=== PATIENT | female | born 1960 | race Caucasian/White ===

== ENCOUNTER → 2016-11-08 | Outpatient (CLI) | payer BC ==
--- NOTE | 2016-11-09 08:40 | MM ---
Reason for exam: screening (asymptomatic). Last mammogram was performed 1 year ago. History: Patient is postmenopausal, has history of other cancer at age 40, and had first child at age 35. Took hormonal contraceptives for 20 years. Physical Findings: A clinical breast exam by your physician is recommended on an annual basis and results should be correlated with mammographic findings. MG Screening Mammo w CAD Bilateral CC and MLO view(s) were taken. Prior study comparison: November 24, 2015, left breast MG 3d work up w/cad LT. November 16, 2015, bilateral MG screening mammo w CAD. October 22, 2013, bilateral digital screening mammo w/CAD. There are scattered fibroglandular densities. There is no discrete abnormality. ASSESSMENT: Negative, BI-RAD 1 RECOMMENDATION: Routine screening mammogram of both breasts in 1 year.
== END | disposition home or self-care (01) ==
LOC: RADMAMWWP 11:03
PROVIDERS: ATTEND Obstetrics & Gynecology
DX: Z12.31 Encounter for screening mammogram for malignant neoplasm of breast (principal)

== ENCOUNTER → 2017-12-07 | Outpatient (CLI) | payer BC ==
--- NOTE | 2017-12-07 15:50 | BD ---
EXAMINATION TYPE: MG DEXA axial skeleton. DATE OF EXAM: 12/07/2017 COMPARISON: NONE CLINICAL HISTORY: Height: 5 FT 2 1/2 IN Weight: 174 FRAX RISK QUESTIONS: Alcohol (3 or more units per day): NO Family History (Parent hip fracture): NO Glucocorticoids (More than 3mos): NO (Ex: prednisone, prednisolone, methylprednisolone, dexamethasone, and hydrocortisone). History of Fracture in Adulthood: NO Secondary Osteoporosis: 1. Type 1 Diabetes: NO 2. Hyperthyroidism: NO 3. Menopause before 45: NOT SURE 4. Malnutrition: NO 5. Chronic liver disease: NO Rheumatoid Arthritis: NO Current Tobacco Use: NO RISK FACTORS HISTORY OF: Postmenopausal woman: PART HYST IN HER 40'S MEDICATIONS: Thyroid Medications: YES Which medication: LEVOTHYROXINE How Lon YEARS Additional Medications: LEVOTHYROXINE Additional History: EXAM MEASUREMENTS: Bone mineral densitometry was performed using the [employer] System. Bone mineral density as measured about the Lumbar spine is: ----- L1-L4(G/cm2): 1.027 T Score Values are as follows: ----- L2: -2.3 ----- L3: -0.5 ----- L4: -0.5 ----- L1-L4: -1.3 Bone mineral density has: DECREASED -4.4 % since study of: 2014 Bone mineral density about the R hip (g/cm2): 0.790 Bone mineral density about the L hip (g/cm2): 0.821 T Score values are as follows: -----R Neck: -1.8 -----L Neck: -1.6 -----R Total: -1.4 -----L Total: -1.1 Bone mineral density has: DECREASED -5.2 % since study of: 2014 IMPRESSION: Osteopenia bilateral femora and lumbar spine and as such there is increased fracture risk. NOTE: T-SCORE=SD OF THE YOUNG ADULT MEAN.
--- NOTE | 2017-12-10 12:08 | MM ---
Reason for exam: screening (asymptomatic). Last mammogram was performed 1 year and 1 month ago. History: Patient is postmenopausal, has history of other cancer at age 40, and had first child at age 35. Took hormonal contraceptives for 20 years. Physical Findings: A clinical breast exam by your physician is recommended on an annual basis and results should be correlated with mammographic findings. MG Screening Mammo w CAD Bilateral CC and MLO view(s) were taken. Prior study comparison: November 08, 2016, bilateral MG screening mammo w CAD. November 24, 2015, left breast MG 3d work up w/cad LT. There are scattered fibroglandular densities. There is no discrete abnormality. ASSESSMENT: Negative, BI-RAD 1 RECOMMENDATION: Routine screening mammogram of both breasts in 1 year.
== END | disposition home or self-care (01) ==
LOC: RADMAMWWP 09:25
PROVIDERS: ATTEND Obstetrics & Gynecology
DX: Z12.31 Encounter for screening mammogram for malignant neoplasm of breast (principal); M85.852 Other specified disorders of bone density and structure, left thigh; M85.851 Other specified disorders of bone density and structure, right thigh; M85.88 Other specified disorders of bone density and structure, other site; N95.1 Menopausal and female climacteric states
CPT/HCPCS: 77067; 77080

== ENCOUNTER 2018-01-23 20:44 | Emergency (ER) | payer BC ==
[2018-01-23 21:02] VITALS: BP 155/86; PULSE 100; RESP 18; TEMP 98.3
--- NOTE | 2018-01-23 21:21 | ED ---
Lower Extremity Injury HPI - General Chief Complaint: Extremity Injury, Lower Stated Complaint: knee pain Time Seen by Provider: 01/23/18 21:10 Source: patient, RN notes reviewed Mode of arrival: ambulatory Limitations: no limitations - History of Present Illness Initial Comments: This is a 57-year-old female who presents to the emergency department with chief complaint of right knee injury. Patient states that she jumped out from the back of her truck prior to arrival and her right knee gave out. She states that she heard a pop. She states that her right knee feels unstable. She states that she has been bearing weight and ambulating on it. Denies any other injuries or trauma. Denies fever, chills, chest pain, shortness of breath, abdominal pain, nausea or vomiting, constipation or diarrhea, dysuria or hematuria, numbness or tingling, headache or vision changes. - Related Data Home Medications Medication Instructions Recorded Confirmed Levothyroxine Sodium 100 mcg PO DAILY 01/23/18 01/23/18 Allergies Allergy/AdvReac Type Severity Reaction Status Date / Time No Known Allergies Allergy Verified 01/23/18 21:02 Review of Systems ROS Statement: Those systems with pertinent positive or pertinent negative responses have been documented in the HPI. ROS Other: All systems not noted in ROS Statement are negative. Past Medical History Past Medical History: Hypertension, Thyroid Disorder History of Any Multi-Drug Resistant Organisms: None Reported Past Surgical History: Section, Hysterectomy Past Psychological History: No Psychological Hx Reported Smoking Status: Never smoker Past Alcohol Use History: None Reported Past Drug Use History: None Reported General Exam - General Exam Comments Initial Comments: General: Awake and alert, well-developed; in no apparent distress. HEENT: Head atraumatic, normocephalic. Pupils are equal, round and reactive to light. Extraocular movements intact. Oropharynx moist without erythema or exudate. Neck: Supple. Normal ROM. Cardiovascular: Regular rate and rhythm. No murmurs, rubs or gallops. Chest symmetrical. Respiratory: Lungs clear to auscultation bilaterally. No wheezes, rales or rhonchi. Normal respiratory effort with no use of accessory muscles. Musculoskeletal: Normal range of motion of the right knee. No erythema, ecchymosis or soft tissue swelling. No tenderness on palpation. Sensation is intact. Pedal pulses are 2+ equal and palpable bilaterally. Skin: [place], warm and dry without rashes or lesions. Neurological: Alert and oriented x3. CN II-XII grossly intact. Speech is fluent and answers are appropriate. No focal neuro deficits. Psychiatric: Normal mood and affect. No overt signs of depression or anxiety noted. Limitations: no limitations Course Vital Signs 01/23/18 20:54 Temperature 98.3 F Pulse Rate 100 Respiratory 18 Rate Blood Pressure 155/86 O2 Sat by Pulse 96 Oximetry Medical Decision Making - Medical Decision Making This is a 57-year-old female who presents to the emergency department with chief complaint of right knee injury. Patient jumped from the tailgate of her truck and her right knee gave out. She felt a pop. No swelling, normal range of motion and no tenderness on palpation of the knee. Patient states that it feels unstable. X-ray was obtained and revealed no acute abnormalities. Patient given a knee immobilizer. She is neurovascularly intact. Recommended following up with her primary care provider and/or orthopedics if no improvement. Recommended rest, ice and elevation. Patient's vital signs are stable and she is in no acute distress. She'll be discharged home at this time. All questions answered. - Radiology Data Radiology results: report reviewed X-ray right knee impression: Normal three-view right knee. Follow-up exam can be performed 7-10 days from acute trauma for continued pain. As read by Dr. Jones Disposition Clinical Impression: Acute internal derangement of knee Disposition: HOME SELF-CARE Condition: Good Instructions: Knee Sprain (ED), Knee Immobilizer (ED) Additional Instructions: Please rest, ice, elevate and wear knee immobilizer while ambulating. Please follow up with primary care provider and/or orthopedics within 1-2 days. Please follow up with primary care provider within 1-2 days. Return to emergency department if symptoms should worsen or any concerns arise. Is patient prescribed a controlled substance at d/c from ED?: No Referrals: Angelito Marcus MD [Primary Care Provider] - 1-2 days Jeremy Diamond MD [STAFF PHYSICIAN] - 1-2 days Time of Disposition: 21:39
--- NOTE | 2018-01-23 21:31 | XR ---
EXAMINATION TYPE: XR knee complete RT DATE OF EXAM: 01/23/2018 COMPARISON: NONE HISTORY: Pain TECHNIQUE: Three-view right knee FINDINGS: No joint effusion is evident. No acute fractures or dislocations are evident. Joint spaces appear preserved. IMPRESSION: 1. Normal three-view right knee. 2. Follow-up exam can be performed 7-10 days from acute trauma for continued pain
== END 2018-01-23 21:59 | disposition home or self-care (01) ==
LOC: EC 20:44
DX: S89.91XA Unspecified injury of right lower leg, initial encounter (principal); E07.9 Disorder of thyroid, unspecified; Z79.899 Other long term (current) drug therapy; X58.XXXA Exposure to other specified factors, initial encounter; Y93.39 Activity, other involving climbing, rappelling and jumping off; Y92.89 Other specified places as the place of occurrence of the external cause
CPT/HCPCS: 73562; 99283; L1830

== ENCOUNTER → 2018-12-11 | Outpatient (CLI) | payer BC ==
--- NOTE | 2018-12-12 09:49 | MM ---
Reason for exam: screening (asymptomatic). Last mammogram was performed 1 year ago. History: Patient is postmenopausal, has history of other cancer at age 40, and had first child at age 35. Took hormonal contraceptives for 20 years. Physical Findings: A clinical breast exam by your physician is recommended on an annual basis and results should be correlated with mammographic findings. MG Screening Mammo w CAD Bilateral CC and MLO view(s) were taken. Prior study comparison: December 07, 2017, bilateral MG screening mammo w CAD. November 08, 2016, bilateral MG screening mammo w CAD. There are scattered fibroglandular densities. There is no discrete abnormality. ASSESSMENT: Negative, BI-RAD 1 RECOMMENDATION: Routine screening mammogram of both breasts in 1 year.
== END ==
LOC: RADMAMWWP 09:50
PROVIDERS: ATTEND Obstetrics & Gynecology
DX: Z12.31 Encounter for screening mammogram for malignant neoplasm of breast (principal)
CPT/HCPCS: 77067

== ENCOUNTER 2019-04-11 21:19 | Emergency (ER) | payer BC ==
[2019-04-11 21:30] VITALS: BP 182/96; PULSE 92; RESP 18
[2019-04-11] MEDS ORDERED: KETOROLAC 30 MG/ML 1 ML VIAL IVP ONE (22:00)
[2019-04-11] MEDS ORDERED: LIDOCAINE 5% PATCH TOPICAL STA (22:00)
--- NOTE | 2019-04-11 22:33 | XR ---
EXAM: XR Chest, 2 Views CLINICAL HISTORY: Pain TECHNIQUE: Frontal and lateral views of the chest. COMPARISON: No relevant prior studies available. FINDINGS: Lungs: Unremarkable. No consolidation. Pleural space: Unremarkable. No pneumothorax. Heart: Unremarkable. No cardiomegaly. Mediastinum: Unremarkable. Bones/joints: Unremarkable. IMPRESSION: Unremarkable chest x-rays
--- NOTE | 2019-04-11 23:33 | ED ---
Back Pain HPI - General Chief Complaint: Back Pain/Injury Stated Complaint: back/shoulder pain Time Seen by Provider: 04/11/19 21:44 Source: patient Limitations: no limitations - History of Present Illness Initial Comments: Asha is a pleasant 58-year-old female presents the emergency department today for evaluation of upper back pain. Patient reports that early this morning she was blow drying her hair when she felt pain in his upper back, she describes the pain as aching or feeling like a bruise. Patient reports that the pain has improved throughout the day however she discussed the pain with her sister and a friend who is a nurse and both advised her that she could be having a heart attack despite the improvement of pain throughout the day the patient in the ER for evaluation. Patient reports that initially the pain was quite uncomfortable when she was blow drying her hair however this evening the pain is miniscule, not significant enough to even take Motrin. Patient denies any chest pain palpitation shortness breath lightheadedness. Denies any previous cardiac history. - Related Data Home Medications Medication Instructions Recorded Confirmed Levothyroxine Sodium 112 mcg PO MOTUWETHFRSA 04/11/19 04/11/19 Allergies Allergy/AdvReac Type Severity Reaction Status Date / Time No Known Allergies Allergy Verified 04/11/19 21:46 Review of Systems ROS Statement: Those systems with pertinent positive or pertinent negative responses have been documented in the HPI. ROS Other: All systems not noted in ROS Statement are negative. Past Medical History Past Medical History: Hypertension, Thyroid Disorder History of Any Multi-Drug Resistant Organisms: None Reported Past Surgical History: Section, Hysterectomy Past Psychological History: No Psychological Hx Reported Smoking Status: Never smoker Past Alcohol Use History: Occasional Past Drug Use History: None Reported General Exam - General Exam Comments Initial Comments: Physical Exam GENERAL: Patient is well-developed and well-nourished. Patient is nontoxic and well- hydrated and is in no distress. HENT: Normocephalic, Atraumatic. EYES: PERRL, EOMI PULMONARY: Unlabored respirations. No audible rales rhonchi or wheezing was noted. CARDIOVASCULAR: There is a regular rate and rhythm without any murmurs gallops or rubs. ABDOMEN: Soft and nontender with normal bowel sounds. SKIN: Skin is clear with no lesions or rashes and otherwise unremarkable. : Deferred NEUROLOGIC: Patient is alert and oriented x3. Moving all extremities spontaneously MUSCULOSKELETAL: Normal extremities with adequate strength and full range of motion. No lower extremity swelling or edema. No calf tenderness. PSYCHIATRIC: Normal psychiatric evaluation. Limitations: no limitations Course Vital Signs 04/11/19 04/11/19 21:27 23:47 Temperature 99.1 F 98.0 F Pulse Rate 92 Respiratory 18 Rate Blood Pressure 182/96 O2 Sat by Pulse 96 Oximetry Medical Decision Making - Medical Decision Making The patient was seen and evaluated history was obtained from patient physical exam was unremarkable EKG was obtained due to the complaint of upper back pain, EKG was obtained at 2156, rate is 93 rhythm sinus tach normal axis are normal intervals are no acute ST elevations or depressions there is no evidence of acute ischemia infarction or arrhythmia. X-ray with no acute findings Patient declined Toradol or Lidoderm. Patient states her pain is not significant enough to warrant treatment. At this time patient's comfortable having a negative EKG and chest x-ray would like to be discharged home. Disposition Clinical Impression: Thoracic back pain Disposition: HOME SELF-CARE Condition: Stable Instructions (If sedation given, give patient instructions): Back Pain (ED) Is patient prescribed a controlled substance at d/c from ED?: No Referrals: Angelito Marcus MD [Primary Care Provider] - 1-2 days
[2019-04-11 23:49] VITALS: TEMP 98
== END 2019-04-11 23:47 | disposition home or self-care (01) ==
LOC: EC 21:19
DX: M54.6 Pain in thoracic spine (principal); E07.9 Disorder of thyroid, unspecified; Z79.890 Hormone replacement therapy
CPT/HCPCS: 71046; 93005; 99283

== ENCOUNTER → 2020-05-25 | Outpatient (CLI) | payer BC ==
--- NOTE | 2020-05-25 11:37 | MM ---
Reason for exam: screening (asymptomatic). Last mammogram was performed 1 year and 5 months ago. History: Patient is postmenopausal, has history of other cancer at age 40, and had first child at age 35. Took hormonal contraceptives for 20 years. Physical Findings: A clinical breast exam by your physician is recommended on an annual basis and results should be correlated with mammographic findings. MG Screening Mammo w CAD Bilateral CC and MLO view(s) were taken. Prior study comparison: December 11, 2018, bilateral MG screening mammo w CAD. December 07, 2017, bilateral MG screening mammo w CAD. The breast tissue is heterogeneously dense. This may lower the sensitivity of mammography. Benign appearing calcifications in the left breast. No significant changes when compared with prior studies. ASSESSMENT: Benign, BI-RAD 2 RECOMMENDATION: Routine screening mammogram of both breasts in 1 year.
--- NOTE | 2020-05-25 11:39 | BD ---
EXAMINATION TYPE: Axial Bone Density DATE OF EXAM: 05/25/2020 COMPARISON: 12/07/2017 CLINICAL HISTORY: Postmenopausal Height: 62.2 IN Weight: 172 LBS FRAX RISK QUESTIONS: Secondary Osteoporosis: 3. Menopause before 45: PARTIAL HYST AGE 44 RISK FACTORS HISTORY OF: Active: YES Postmenopausal woman: PARTIAL HYST AGE44 MEDICATIONS: Thyroid Medications: YES Which medication: Levothyroxine How Lon+ YEARS Additional Medications: VIT D, LEVOTHYROXINE, EXAM MEASUREMENTS: Bone mineral densitometry was performed using the [employer] System. Bone mineral density as measured about the Lumbar spine is: ----- L1-L4(G/cm2): 0.964 T Score Values are as follows: ----- L2: -1.7 ----- L3: -1.9 ----- L4: -1.7 ----- L1-L4: -1.8 Bone mineral density has: Decreased -8.2% since study of: 12/07/2017 Bone mineral density about the R hip (g/cm2): 0.747 Bone mineral density about the L hip (g/cm2): 0.747 T Score values are as follows: -----R Neck: -2.1 -----L Neck: -2.1 -----R Total: -1.7 -----L Total: -1.4 Bone mineral density has: Decreased -4.8% since study of: 12/07/2017 IMPRESSION: Osteopenia (T Score between -2.5 and -1). There is slightly increased risk of fracture and the patient may be considered for treatment. Re-Screen 2-5 years. NOTE: T-SCORE=SD OF THE YOUNG ADULT MEAN.
== END | disposition home or self-care (01) ==
LOC: RADMAMWWP 10:17
PROVIDERS: ATTEND Obstetrics & Gynecology
DX: Z12.31 Encounter for screening mammogram for malignant neoplasm of breast (principal); M85.80 Other specified disorders of bone density and structure, unspecified site
CPT/HCPCS: 77067; 77080

== ENCOUNTER → 2020-12-29 | Outpatient (CLI) | payer BC ==
[2020-12-30 02:10] LABS: African American GFR (CKD) 70.9 (60.0-200.0); Albumin 4.7 g/dL (3.80-4.90); Albumin/Globulin Ratio 2.04 (1.60-3.17); Anion Gap 12.1 mmol/L (4.00-12.00); Carbon Dioxide 22.9 mmol/L (21.6-31.8); Chol/HDL Ratio 5.73; Globulin 2.3 g/dL (1.6-3.3); LDL Cholesterol,Calculated 155.8 mg/dL (0.0-131.0); Non-African American GFR(CKD) 61.2 (60.0-200.0); Potassium 4.1 mmol/L (3.5-5.5); Total Bilirubin 0.9 mg/dL (0.3-1.2); VLDL Calculation 33.2 mg/dL (5.00-40.00)
== END | disposition home or self-care (01) ==
LOC: LABWHC1 10:04
PROVIDERS: ATTEND Internal Medicine Interventional Cardiology
DX: E78.2 Mixed hyperlipidemia (principal)
CPT/HCPCS: 36415; 80053; 80061

== ENCOUNTER → 2021-05-27 | Outpatient (CLI) | payer BC | END | disposition home or self-care (01) | LOC: LABWHC1 11:02 | PROVIDERS: ATTEND Nurse Practitioner Adult Health | DX: Z53.9 Procedure and treatment not carried out, unspecified reason (principal) ==

== ENCOUNTER → 2021-05-27 | Outpatient (CLI) | payer BC ==
[2021-05-27 19:04] LABS: Chol/HDL Ratio 3.51 Ratio; HDL Cholesterol 45.6 mg/dL (40.00-60.00); LDL Cholesterol,Calculated 72.4 mg/dL (0.0-131.0)
--- NOTE | 2021-05-30 11:42 | MM ---
Reason for exam: screening (asymptomatic). Last mammogram was performed 1 year ago. History: Patient is postmenopausal, has history of other cancer at age 40, and had first child at age 35. Took hormonal contraceptives for 20 years. Physical Findings: A clinical breast exam by your physician is recommended on an annual basis and results should be correlated with mammographic findings. MG Screening Mammo w CAD Bilateral CC and MLO view(s) were taken. Prior study comparison: May 25, 2020, bilateral MG screening mammo w CAD. December 11, 2018, bilateral MG screening mammo w CAD. December 07, 2017, bilateral MG screening mammo w CAD. There are scattered fibroglandular densities. There is no discrete abnormality. ASSESSMENT: Negative, BI-RAD 1 RECOMMENDATION: Routine screening mammogram of both breasts in 1 year.
== END | disposition home or self-care (01) ==
LOC: RADMAMWWP 10:35
PROVIDERS: ATTEND Obstetrics & Gynecology
DX: Z12.31 Encounter for screening mammogram for malignant neoplasm of breast (principal); Z78.0 Asymptomatic menopausal state
CPT/HCPCS: 77067; 80061; 84450; 84460

== ENCOUNTER 2021-08-10 18:02 | Emergency (ER) | payer BC ==
--- NOTE | 2021-08-10 19:32 | ED ---
General Adult HPI - General Chief complaint: Neuro Symptoms/Deficit Stated complaint: Poss stroke Time Seen by Provider: 08/10/21 18:16 Source: patient Mode of arrival: wheelchair Limitations: no limitations - History of Present Illness Initial comments: Patient is a 61-year-old female with past medical history of hypertension who presents emergency Department with reported left-sided facial droop. Reports that her symptoms started yesterday. She called her primary care doctor today who recommended that she come into the emergency department for evaluation. No history of stroke. Denies any left upper or lower extremity weakness. Denies any sensory changes. No speech difficulties. Reports that she had Covid one month ago. Denies any tinnitus. No recent head trauma. Her patient's on any blood thinners. No other alleviating, precipitating or modifying factors - Related Data Home Medications Medication Instructions Recorded Confirmed Levothyroxine Sodium 112 mcg PO MOTUWETHFRSA 04/11/19 08/10/21 Alendronate Sodium [Fosamax] 70 mg PO FRANK 08/10/21 08/10/21 Atorvastatin Calcium [Lipitor] 40 mg PO HS@2330 08/10/21 08/10/21 Cholecalciferol [Vitamin D3 (25 50 mcg PO DAILY 08/10/21 08/10/21 Mcg = 1000 Iu)] Losartan Potassium 50 mg PO DAILY@1100 08/10/21 08/10/21 Metoprolol Succinate [Toprol XL] 25 mg PO DAILY@1800 08/10/21 08/10/21 Previous Rx's Medication Instructions Recorded Artificial Tears Ointment 1 gm OPHTHALMIC HS #3.5 gm 08/10/21 [Lubrifresh Pm Ointment] predniSONE [Deltasone] 60 mg PO DAILY 7 Days #21 tab 08/10/21 valACYclovir HCL [Valtrex] 1,000 mg PO TID #21 tab 08/10/21 Allergies Allergy/AdvReac Type Severity Reaction Status Date / Time No Known Allergies Allergy Verified 08/10/21 19:04 Review of Systems ROS Statement: Those systems with pertinent positive or pertinent negative responses have been documented in the HPI. ROS Other: All systems not noted in ROS Statement are negative. Past Medical History Past Medical History: Hyperlipidemia, Hypertension, Osteoarthritis (OA), Thyroid Disorder History of Any Multi-Drug Resistant Organisms: None Reported Past Surgical History: Section, Hysterectomy Past Psychological History: No Psychological Hx Reported Smoking Status: Never smoker Past Alcohol Use History: Occasional Past Drug Use History: None Reported General Exam Limitations: no limitations Course Vital Signs 08/10/21 08/10/21 08/10/21 18:20 19:22 20:08 Temperature 99.6 F 98.2 F Pulse Rate 126 H 98 105 H Respiratory 19 18 16 Rate Blood Pressure 184/99 154/103 159/102 O2 Sat by Pulse 96 97 97 Oximetry EKG Findings - EKG Comments: EKG Findings:: EKG demonstrates a sinus tachycardia with a ventricular rate of 115. OH interval 144. QRS 80. QTC of 475. No acute ST segment elevations or depressions concerning for ischemic changes Medical Decision Making - Medical Decision Making Upon arrival patient's placed into room 3. Thorough history and physical exam is performed. Laboratory studies were conducted. She does over for CT of her brain as well as CT angiography. Laboratory says reviewed. Glucose 128. CT of the brain demonstrates no acute intracranial process. CT angiography does not demonstrate any high-grade stenosis dissection or aneurysm. Chest x-ray demonstrates mid left lung peripheral opacities suggestive of atelectasis or scarring. Results are discussed with patient. Patient appears clinically to present with Sue's palsy. She is given a dose of prednisone, valacyclovir. Patient will be discharged home with a prescription for prednisone, valacyclovir and refresh eyedrops. Instructed to take eye closed at night. Follow-up the [facility] doctor in 2-4 days. Return to emergency room for any new or worsening symptoms. Patient was discharged home in stable condition - Lab Data Result diagrams: 08/10/21 19:18 08/10/21 19:18 Lab Results 08/10/21 08/10/21 08/10/21 Range/Units 19:18 19:18 19:18 WBC 9.3 (3.8-10.6) k/uL RBC 4.19 (3.80-5.40) m/uL Hgb 12.7 (11.4-16.0) gm/dL Hct 38.7 (34.0-46.0) % MCV 92.2 (80.0-100.0) fL MCH 30.4 (25.0-35.0) pg MCHC 32.9 (31.0-37.0) g/dL RDW 13.8 (11.5-15.5) % Plt Count 297 (150-450) k/uL MPV 7.5 Neutrophils % 72 % Lymphocytes % 19 % Monocytes % 5 % Eosinophils % 2 % Basophils % 0 % Neutrophils # 6.7 (1.3-7.7) k/uL Lymphocytes # 1.8 (1.0-4.8) k/uL Monocytes # 0.5 (0-1.0) k/uL Eosinophils # 0.2 (0-0.7) k/uL Basophils # 0.0 (0-0.2) k/uL PT 10.8 (9.0-12.0) sec INR 1.0 (<1.2) APTT 24.3 (22.0-30.0) sec Sodium 139 (137-145) mmol/L Potassium 3.9 (3.5-5.1) mmol/L Chloride 104 (98-107) mmol/L Carbon Dioxide 24 (22-30) mmol/L Anion Gap 11 mmol/L BUN 18 H (7-17) mg/dL Creatinine 0.78 (0.52-1.04) mg/dL Est GFR (CKD-EPI)AfAm >90 (>60 ml/min/1.73 sqM) Est GFR (CKD-EPI)NonAf 83 (>60 ml/min/1.73 sqM) Glucose 128 H (74-99) mg/dL Calcium 9.7 (8.4-10.2) mg/dL Total Bilirubin 0.5 (0.2-1.3) mg/dL AST 30 (14-36) U/L ALT 47 H (4-34) U/L Alkaline Phosphatase 100 (38-126) U/L Troponin I (0.000-0.034) ng/mL Total Protein 7.5 (6.3-8.2) g/dL Albumin 4.2 (3.5-5.0) g/dL 08/10/21 Range/Units 19:18 WBC (3.8-10.6) k/uL RBC (3.80-5.40) m/uL Hgb (11.4-16.0) gm/dL Hct (34.0-46.0) % MCV (80.0-100.0) fL MCH (25.0-35.0) pg MCHC (31.0-37.0) g/dL RDW (11.5-15.5) % Plt Count (150-450) k/uL MPV Neutrophils % % Lymphocytes % % Monocytes % % Eosinophils % % Basophils % % Neutrophils # (1.3-7.7) k/uL Lymphocytes # (1.0-4.8) k/uL Monocytes # (0-1.0) k/uL Eosinophils # (0-0.7) k/uL Basophils # (0-0.2) k/uL PT (9.0-12.0) sec INR (<1.2) APTT (22.0-30.0) sec Sodium (137-145) mmol/L Potassium (3.5-5.1) mmol/L Chloride (98-107) mmol/L Carbon Dioxide (22-30) mmol/L Anion Gap mmol/L BUN (7-17) mg/dL Creatinine (0.52-1.04) mg/dL Est GFR (CKD-EPI)AfAm (>60 ml/min/1.73 sqM) Est GFR (CKD-EPI)NonAf (>60 ml/min/1.73 sqM) Glucose (74-99) mg/dL Calcium (8.4-10.2) mg/dL Total Bilirubin (0.2-1.3) mg/dL AST (14-36) U/L ALT (4-34) U/L Alkaline Phosphatase (38-126) U/L Troponin I <0.012 (0.000-0.034) ng/mL Total Protein (6.3-8.2) g/dL Albumin (3.5-5.0) g/dL Disposition Clinical Impression: Sue's palsy, Facial droop Disposition: HOME SELF-CARE Condition: Stable Instructions (If sedation given, give patient instructions): Sue Palsy (ED) Additional Instructions: Please follow-up with your primary care doctor in 2-4 days. Return to the emergency department for any new or worsening symptoms Prescriptions: predniSONE [Deltasone] 60 mg PO DAILY 7 Days #21 tab Artificial Tears Ointment [Lubrifresh Pm Ointment] 1 gm OPHTHALMIC HS #3.5 gm valACYclovir HCL [Valtrex] 1,000 mg PO TID #21 tab Is patient prescribed a controlled substance at d/c from ED?: No Referrals: Angelito Marcus MD [Primary Care Provider] - 1-2 days Time of Disposition: 20:50
[2021-08-10 19:34] LABS: Basophils % (A) 0 %; Eosinophils # (A) 0.2 k/uL (0-0.7); Eosinophils % (A) 2 %; HCT 38.7 % (34.0-46.0); HGB 12.7 gm/dL (11.4-16.0); Lymphocytes # (A) 1.8 k/uL (1.0-4.8); Lymphocytes % (A) 19 %; MCH 30.4 pg (25.0-35.0); MCHC 32.9 g/dL (31.0-37.0); MCV 92.2 fL (80.0-100.0); Mean Platelet Volume 7.5; Monocytes # (A) 0.5 k/uL (0-1.0); Monocytes % (A) 5 %; Neutrophils # (A) 6.7 k/uL (1.3-7.7); Neutrophils % (A) 72 %; Platelet Count 297 k/uL (150-450); RBC 4.19 m/uL (3.80-5.40); RDW 13.8 % (11.5-15.5); WBC 9.3 k/uL (3.8-10.6)
--- NOTE | 2021-08-10 19:51 | CT ---
EXAM: CT brain wo con CLINICAL HISTORY: Suspected stroke. Left facial drooping. COMPARISON: None TECHNIQUE: Contiguous axial noncontrast images of the brain were obtained. Coronal and sagittal refor mats were generated and reviewed. Automated dose control was used for this exam. FINDINGS: There is no evidence for intracranial hemorrhage, mass effect or midline shift. The white matter is g rossly preserved. Ventricular size and configuration is within normal limits for degree of parenchymal volume. The paranasal sinuses demonstrate moderate sized right maxillary sinus mucus retention cyst, otherwis e clear. The mastoid air cells are clear. No evidence for calvarial fracture. IMPRESSION: No acute intracranial abnormality.
[2021-08-10 19:55] LABS: ALT 47 U/L (4-34); AST 30 U/L (14-36); African American GFR (CKD) >90 (>60 ml/min/1.73 sqM); Albumin 4.2 g/dL (3.5-5.0); Alkaline Phosphatase 100 U/L (38-126); Anion Gap 11 mmol/L; Blood Urea Nitrogen 18 mg/dL (7-17); Calcium 9.7 mg/dL (8.4-10.2); Carbon Dioxide 24 mmol/L (22-30); Chloride 104 mmol/L (98-107); Glucose 128 mg/dL (74-99); Non-African American GFR(CKD) 83 (>60 ml/min/1.73 sqM); Potassium 3.9 mmol/L (3.5-5.1); Sodium 139 mmol/L (137-145); Total Bilirubin 0.5 mg/dL (0.2-1.3); Total Protein 7.5 g/dL (6.3-8.2)
[2021-08-10 20:00] LABS: Partial Thromboplastin Time 24.3 sec (22.0-30.0); Prothrombin Time 10.8 sec (9.0-12.0)
--- NOTE | 2021-08-10 20:07 | XR ---
EXAMINATION TYPE: XR chest 2V DATE OF EXAM: 08/10/2021 COMPARISON: 04/11/2019 HISTORY: Altered mental status TECHNIQUE: Frontal and lateral views of the chest are obtained. FINDINGS: There is mild peripheral opacities in the left mid to lower lung. No pleural effusion, or pneumothorax seen. The cardiac silhouette size is within normal limits. The osseous structures are intact. IMPRESSION: Mild left lung peripheral opacity, suggestive of atelectasis and/or scarring.
[2021-08-10 20:09] VITALS: RESP 16
--- NOTE | 2021-08-10 20:28 | CT ---
EXAMINATION TYPE: CT angio head neck DATE OF EXAM: 08/10/2021 HISTORY: Neuro deficits, LT side facial drooping COMPARISON: None available CT DLP: 386.1 mGycm. Automated Exposure Control for Dose Reduction was Utilized. TECHNIQUE: CTA scan of the head/neck is performed with IV Contrast, patient injected with 65 mL of I sovue 370, axial images are obtained, coronal and sagittal reformatted images are reviewed. 3D recons tructed images are created on an independent workstation and reviewed. FINDINGS: There is no significant atherosclerosis. There is normal three-vessel branching of the aorta. There i s no evidence of high-grade stenosis, dissection or aneurysm seen in the bilateral common carotid, ce rvical internal carotid and vertebral arteries. There is no evidence of high-grade stenosis, dissection or aneurysm in the intracranial internal melchor tid arteries, anterior, middle and posterior cerebral arteries as well as in the imaged vertebral and basilar arteries. The communicating arteries are unremarkable. The visualized lung apices demonstrate small left upper lobe opacity. IMPRESSION: Left upper lobe opacity may represent atelectasis, aspiration changes or pneumonia. Otherwise no significant abnormality of the CTA head/neck. NASCET criteria was used in interpretation of this exam?
[2021-08-10] MEDS ORDERED: predniSONE 20 MG TAB PO STA (20:42)
[2021-08-10] MEDS ORDERED: valACYclovir HCL 1,000 MG TABLET PO STA (20:42)
[2021-08-10 22:11] VITALS: BP 134/96; PULSE 106; TEMP 98.1
== END 2021-08-10 22:09 | disposition home or self-care (01) ==
LOC: EC 18:02
DX: R29.810 Facial weakness (principal); I10 Essential (primary) hypertension; E78.5 Hyperlipidemia, unspecified; M19.90 Unspecified osteoarthritis, unspecified site; E07.9 Disorder of thyroid, unspecified; Z90.710 Acquired absence of both cervix and uterus
CPT/HCPCS: 99284; 36415; 93005; 80053; 84484; 85025; 85610; 85730; 71046; 70496; 70450; 70498; J7512; Q9967

== ENCOUNTER → 2022-06-05 | Outpatient (CLI) | payer BC ==
--- NOTE | 2022-06-05 11:37 | BD ---
EXAMINATION TYPE: Axial Bone Density DATE OF EXAM: 06/05/2022 COMPARISON: 12-07-17 (PREVIOUS OF 05-25-20 UNAVAILABLE) CLINICAL HISTORY: 62 years year old Female. ICD-10 CODE: M85.88 OSTEOPENIA Height: 62IN Weight: 178LB FRAX RISK QUESTIONS: Secondary Osteoporosis: RISK FACTORS HISTORY OF: Active: YES Postmenopausal woman: YES Lost more than 2 inches in height since high school: YES MEDICATIONS: Thyroid Medications: Which medication: Levothyroxine How Lon YEARS Additional Medications: ALENDRONATE, VITAMIN D, BP MED, CHOLESTEROL MED Additional History: EXAM MEASUREMENTS: Bone mineral densitometry was performed using the Novadiol System. Bone mineral density as measured about the Lumbar spine is: ----- L1-L4(G/cm2): 1.086 T Score Values are as follows: ----- L1: -1.4 ----- L2: -0.7 ----- L3: -0.8 ----- L4: -0.4 ----- L1-L4: -0.8 Bone mineral density has: Increased 4.4% since study of: 12-07-17 (PREVIOUS OF 05-25-20 UNAVAILABLE) Bone mineral density about the R hip (g/cm2): 0.833 Bone mineral density about the L hip (g/cm2): 0.893 T Score values are as follows: -----R Neck: -1.8 -----L Neck: -1.8 -----R Total: -1.4 -----L Total: -0.9 Bone mineral density has: Increased 1.1% since study of: 12-07-17 FRAX%s: The graph provided illustrates a 9.0% chance for a major osteoporotic fx and a 1.0% chance fo r the hips probability for fx in 10 years time. IMPRESSION: Osteopenia (T Score between -2.5 and -1). There is slightly increased risk of fracture and the patient may be considered for treatment. Re-Screen 2-5 years. NOTE: T-SCORE=SD OF THE YOUNG ADULT MEAN.
--- NOTE | 2022-06-06 15:02 | MM ---
Reason for Exam: Screening (asymptomatic). Last screening mammogram was performed 12 month(s) ago. Patient History: Menarche at age 14. First Full-Term at age 35. Late child-bearing (after 30). Hysterectomy at age 47. Postmenopausal. Other cancer, age 40. Patient used Hormonal Contraceptives for 20 years. Risk Values: Ciara 5 year model risk: 1.9%. NCI Lifetime model risk: 8.6%. Prior Study Comparison: 12/11/2018 Bilateral Screening Mammogram, [facility]. 05/25/2020 Bilateral Screening Mammogram, [facility]. 05/27/2021 Bilateral Screening Mammogram, [facility]. Tissue Density: There are scattered fibroglandular densities. Findings: Analyzed By CAD. Approximately 6 to 7 cm from the nipple in the lateral aspect of the right breast middle depth there is an area of increased attenuation may represent summation shadows. Findings appear different than on prior exams. No suspicious microcalcification. Recommend spot compression view and ultrasound if the abnormality persists. Overall Assessment: Incomplete: need additional imaging evaluation, BI-RAD 0 Management: Special View Mammogram of the right breast. A clinical breast exam by your physician is recommended on an annual basis and results should be correlated with mammographic findings. Electronically signed and approved by: Gilmer Serrano M.D. Radiologis
== END | disposition home or self-care (01) ==
LOC: RADMAMWWP 10:41
PROVIDERS: ATTEND Obstetrics & Gynecology
DX: Z12.31 Encounter for screening mammogram for malignant neoplasm of breast (principal); M85.89 Other specified disorders of bone density and structure, multiple sites; Z78.0 Asymptomatic menopausal state
CPT/HCPCS: 77067; 77080

== ENCOUNTER → 2022-06-13 | Outpatient (CLI) | payer BC ==
--- NOTE | 2022-06-13 11:02 | MM ---
Reason for Exam: Additional evaluation requested from abnormal screening. Last screening mammogram was performed less than 1 month ago. Patient History: Menarche at age 14. First Full-Term at age 35. Late child-bearing (after 30). Hysterectomy at age 47. Postmenopausal. Other cancer, age 40. Patient used Hormonal Contraceptives for 20 years. Risk Values: Ciara 5 year model risk: 1.9%. NCI Lifetime model risk: 8.6%. Prior Study Comparison: 05/25/2020 Bilateral Screening Mammogram, [facility]. 05/27/2021 Bilateral Screening Mammogram, [facility]. 06/05/2022 Bilateral MG screening mammo w CAD, [facility]. Tissue Density: Right: There are scattered fibroglandular densities. Findings: Analyzed By CAD. The upper outer quadrant area of focal asymmetry disperses on additional views. Findings compatible with superimposition shadow. Overall Assessment: Negative, BI-RAD 1 Management: Screening Mammogram of both breasts in 1 year. 1. Patient should continue monthly self breast exams. 2. A clinical breast exam by your physician is recommended on an annual basis. 3. This exam should not preclude additional follow-up of suspicious palpable abnormalities. Results were given to the patient verbally at the time of exam. Electronically signed and approved by: Basilio Da Silva M.D. Radiologist
== END | disposition home or self-care (01) ==
LOC: RADMAMWWP 10:21
PROVIDERS: ATTEND Obstetrics & Gynecology
DX: R92.8 Other abnormal and inconclusive findings on diagnostic imaging of breast (principal); Z78.0 Asymptomatic menopausal state
CPT/HCPCS: 77065

== ENCOUNTER → 2023-06-14 | Outpatient (CLI) | payer BC ==
--- NOTE | 2023-06-15 11:49 | MM ---
Reason for Exam: Screening (asymptomatic). Last screening mammogram was performed 12 month(s) ago. Patient History: Menarche at age 14. First Full-Term at age 35. Late child-bearing (after 30). Hysterectomy at age 47. Postmenopausal. Other cancer, age 40. Patient used Hormonal Contraceptives for 20 years. Risk Values: Ciara 5 year model risk: 2.0%. NCI Lifetime model risk: 8.4%. Prior Study Comparison: 05/27/2021 Bilateral Screening Mammogram, [facility]. 06/05/2022 Bilateral MG screening mammo w CAD, [facility]. 06/13/2022 Right MG work up mamm w CAD RT, [facility]. Tissue Density: The breast tissue is heterogeneously dense. This may lower the sensitivity of mammography. Findings: Analyzed By CAD. There is no suspicious group of microcalcifications or new suspicious mass in either breast. Overall Assessment: Negative, BI-RAD 1 Management: Screening Mammogram of both breasts in 1 year. . Patient should continue monthly self-breast exams. A clinical breast exam by your physician is recommended on an annual basis. This exam should not preclude additional follow-up of suspicious palpable abnormalities. Note on Ciara scores and lifetime risk: 1. A Ciara score greater than 3% is considered moderate risk. If this is the case, consider specialist referral to assess eligibility for a risk reducing agent. 2. If overall lifetime risk for the development of breast cancer is 20% or higher, the patient may qualify for future screening with alternating mammogram and breast MRI. Electronically signed and approved by: Jorge Guerra M.D. Radiologis
== END | disposition home or self-care (01) ==
LOC: RADMAMWWP 10:22
PROVIDERS: ATTEND Obstetrics & Gynecology
DX: Z12.31 Encounter for screening mammogram for malignant neoplasm of breast (principal); Z78.0 Asymptomatic menopausal state
CPT/HCPCS: 77067

== ENCOUNTER → 2023-12-03 | Outpatient (CLI) | payer BC ==
[2023-12-03 21:15] LABS: ALT 28 U/L (8-44); AST 19 U/L (13-35); Albumin 4.4 g/dL (3.8-4.9); Albumin/Globulin Ratio 1.83 Ratio (1.60-3.17); Alkaline Phosphatase 82 U/L (41-126); BUN/Creat Ratio 21.88 Ratio (12.00-20.00); Blood Urea Nitrogen 17.5 mg/dL (9.0-27.0); Calcium 9.4 mg/dL (8.7-10.3); Carbon Dioxide 26.3 mmol/L (21.6-31.8); Chloride 104 mmol/L (96-109); Chol/HDL Ratio 3.39 Ratio; Globulin 2.4 g/dL (1.6-3.3); Glucose 128 mg/dL (70-110); LDL Cholesterol,Calculated 84.4 mg/dL (0.0-131.0); Potassium 3.7 mmol/L (3.5-5.5); Sodium 141 mmol/L (135-145); Total Bilirubin 0.6 mg/dL (0.3-1.2); Total Protein 6.8 g/dL (6.2-8.2)
== END | disposition home or self-care (01) ==
LOC: LABWHC1 13:40
PROVIDERS: ATTEND Internal Medicine Interventional Cardiology
DX: E78.2 Mixed hyperlipidemia (principal)
CPT/HCPCS: 36415; 80053; 80061

== ENCOUNTER 2024-02-15 09:08 | Day surgery (SDC) | payer BC ==
[2024-02-15 09:33] VITALS: RESP 16; TEMP 97.5
[2024-02-15] MEDS: IV FLUID CONTINUATION 1,000 ML IV ONE (09:34)
[2024-02-15] MEDS: LACTATED RINGERS 1,000 ML IV SCH (09:36)
[2024-02-15] MEDS ORDERED: LIDOCAINE 1% INJ 10MG/ML (20 ML MDV) ONE (10:13)
[2024-02-15] MEDS ORDERED: PROPOFOL 10 MG/ML 20 ML VIAL IV ONE (10:13)
--- NOTE | 2024-02-15 10:34 | P.PCN ---
Date of Procedure: 02/15/24 Procedure(s) Performed: BRIEF HISTORY: Patient is a 61-year-old pleasant female scheduled for an elective colonoscopy as a part of screening for colon cancer. PROCEDURE PERFORMED: Colonoscopy with biopsy and snare polypectomy. PREOPERATIVE DIAGNOSIS: Screening for colon cancer. IV sedation per Anesthesia. PROCEDURE: After informed consent was obtained, the patient, was brought into the endoscopy unit. IV sedation was administered by Anesthesia under continuous monitoring. Digital rectal examination was normal. Initially the Olympus CF-160 flexible video colonoscope was then inserted in the rectum, gradually advanced into the cecum without any difficulty. Careful examination was performed as the scope was gradually being withdrawn. Ileocecal valve and the appendiceal orifice were visualized and appeared normal. Prep was excellent. Mucosa of the cecum, ascending colon, appeared normal. In the hepatic Exa there was a 3 to 4 mm polyp that was removed by cold biopsy. Rest of the transverse colon, descending colon appeared normal. The distal sigmoid colon there was a 1 cm pedunculated polyp removed by snare polypectomy. Rest of the, sigmoid colon, and rectum appeared normal. Retroflexion was performed in the rectum and no lesions were seen. The patient tolerated the procedure well. IMPRESSION: 4 mm hepatic flexure polyp status post cold biopsy 1 cm distal sigmoid colon polyp status post polypectomy RECOMMENDATIONS: Findings of this examination were discussed with the patient as well as her family. She was advised to follow-up with the biopsy results. If the biopsy reveals adenoma she can have repeat colonoscopy 3 years..
[2024-02-15 10:59] VITALS: BP 123/72; PULSE 68
== END 2024-02-15 11:44 | disposition home or self-care (01) ==
LOC: ORWHC2ENDO 09:08
PROVIDERS: ATTEND Internal Medicine Gastroenterology
DX: Z12.11 Encounter for screening for malignant neoplasm of colon (principal); D12.3 Benign neoplasm of transverse colon; D12.5 Benign neoplasm of sigmoid colon; I10 Essential (primary) hypertension; E78.5 Hyperlipidemia, unspecified; E07.9 Disorder of thyroid, unspecified; Z79.890 Hormone replacement therapy; Z79.899 Other long term (current) drug therapy
CPT/HCPCS: 88305; 45380; 45385; J2001; J2704

== ENCOUNTER → 2024-06-25 | Outpatient (CLI) | payer BC ==
--- NOTE | 2024-06-26 14:17 | MM ---
Reason for Exam: Screening (asymptomatic). Last screening mammogram was performed 12 month(s) ago. Patient History: Menarche at age 14. First Full-Term at age 35. Late child-bearing (after 30). Hysterectomy at age 47. Postmenopausal. Other cancer, age 40. Patient used Hormonal Contraceptives for 20 years. Risk Values: Ciara 5 year model risk: 2.0%. NCI Lifetime model risk: 8.1%. Prior Study Comparison: 06/05/2022 Bilateral MG screening mammo w CAD, [facility]. 06/13/2022 Right MG work up mamm w CAD RT, [facility]. 06/14/2023 Bilateral MG screening mammo w CAD, [facility]. Tissue Density: There are scattered areas of fibroglandular density. Findings: Analyzed By CAD. There is no suspicious group of microcalcifications or new suspicious mass in either breast. Overall Assessment: Negative, BI-RAD 1 Management: Screening Mammogram of both breasts in 1 year. . Patient should continue monthly self-breast exams. A clinical breast exam by your physician is recommended on an annual basis. This exam should not preclude additional follow-up of suspicious palpable abnormalities. Note on Ciara scores and lifetime risk: 1. A Ciara score greater than 3% is considered moderate risk. If this is the case, consider specialist referral to assess eligibility for a risk reducing agent. 2. If overall lifetime risk for the development of breast cancer is 20% or higher, the patient may qualify for future screening with alternating mammogram and breast MRI. [facility], , 06/26/2024 2:14 PM. Electronically signed and approved by: Basilio Da Silva M.D. Radiologist
== END | disposition home or self-care (01) ==
LOC: RADMAMWWP 12:40
PROVIDERS: ATTEND Family Medicine
DX: Z12.31 Encounter for screening mammogram for malignant neoplasm of breast (principal); R92.323 Mammographic fibroglandular density, bilateral breasts; Z78.0 Asymptomatic menopausal state; Z92.0 Personal history of contraception
CPT/HCPCS: 77067

== ENCOUNTER → 2024-12-17 | Outpatient (CLI) | payer BC ==
[2024-12-17 15:01] LABS: Basophils # (A) 0.04 X 10*3/uL (0.00-0.10); Basophils % (A) 0.6 %; Eosinophils % (A) 1.5 %; HCT 39.3 % (37.2-46.3); HGB 12.9 g/dL (12.0-15.0); Lymphocytes # (A) 1.46 X 10*3/uL (0.90-5.00); Lymphocytes % (A) 21.9 %; MCH 29.1 pg (27.0-32.0); MCHC 32.8 g/dL (32.0-37.0); MCV 88.5 FL (80.0-97.0); Monocytes # (A) 0.37 X 10*3/uL (0.20-1.00); Monocytes % (A) 5.5 %; NRBC Per 100 WBC 0 X 10*3/uL (0.00-0.01); Neutrophils % (A) 70.4 %; Platelet Count 286 X 10*3/uL (140-440); RBC 4.44 X 10*6/uL (4.10-5.20); RDW 12.6 % (11.5-14.5); WBC 6.68 X 10*3/uL (4.50-10.00)
[2024-12-17 15:31] LABS: ALT 27 U/L (8-44); AST 27 U/L (13-35); Albumin 4.4 g/dL (3.8-4.9); Albumin/Globulin Ratio 1.57 Ratio (1.60-3.17); Alkaline Phosphatase 81 U/L (41-126); BUN/Creat Ratio 32.38 Ratio (12.00-20.00); Blood Urea Nitrogen 25.9 mg/dL (9.0-27.0); Calcium 9.6 mg/dL (8.7-10.3); Carbon Dioxide 25.5 mmol/L (21.6-31.8); Chloride 104 mmol/L (96-109); Chol/HDL Ratio 3.39 Ratio; Globulin 2.8 g/dL (1.6-3.3); Glucose 134 mg/dL (70-110); LDL Cholesterol,Calculated 88.5 mg/dL (0.0-131.0); Lipase 34 U/L (14-63); Potassium 4.3 mmol/L (3.5-5.5); Sodium 142 mmol/L (135-145); Total Bilirubin 0.6 mg/dL (0.3-1.2); Total Protein 7.2 g/dL (6.2-8.2)
== END | disposition home or self-care (01) ==
LOC: LABWHC1 11:14
PROVIDERS: ATTEND Internal Medicine Interventional Cardiology
DX: I10 Essential (primary) hypertension (principal); E78.2 Mixed hyperlipidemia
CPT/HCPCS: 36415; 80053; 80061; 83036; 83690; 85025

== ENCOUNTER → 2025-02-09 | Outpatient (CLI) | payer BC ==
[2025-02-09 18:28] LABS: HCT 39.7 % (37.2-46.3); MCH 29.4 pg (27.0-32.0); MCHC 32.7 g/dL (32.0-37.0); MCV 89.8 FL (80.0-97.0); Mean Platelet Volume 10.1 FL (9.5-12.2); NRBC Per 100 WBC 0 X 10*3/uL (0.00-0.01); Platelet Count 274 X 10*3/uL (140-440); RBC 4.42 X 10*6/uL (4.10-5.20); RDW 12.7 % (11.5-14.5); WBC 9.23 X 10*3/uL (4.50-10.00)
[2025-02-09 18:37] LABS: Blood Urea Nitrogen 25.5 mg/dL (9.0-27.0); Carbon Dioxide 24.7 mmol/L (21.6-31.8); Chloride 104 mmol/L (96-109); Potassium 4.4 mmol/L (3.5-5.5); Sodium 140 mmol/L (135-145)
== END | disposition home or self-care (01) ==
LOC: LABPAT 14:37
PROVIDERS: ATTEND Internal Medicine Interventional Cardiology
DX: Z01.812 Encounter for preprocedural laboratory examination (principal); R94.39 Abnormal result of other cardiovascular function study
CPT/HCPCS: 80051; 82565; 84520; 85027

== ENCOUNTER 2025-02-11 07:13 | Day surgery (SDC) | payer BC ==
[2025-02-09 10:41] VITALS: BMI 29.2
[~2025-02-11 07:13] MED LIST: ALPRAZolam 0.25 MG TAB PO PRN; ALPRAZolam 0.5 MG TAB PO PRN; HEPARIN SODIUM,PORCINE (1 ML) 2,500 UNIT in SODIUM CHLORIDE 0.9% 250 ML IRRIGATION PRN; HEPARIN SODIUM,PORCINE 10,000 UNIT in SODIUM CHLORIDE 0.9% 1,000 ML IRRIGATION PRN; NITROGLYCERIN SL TABS 0.4 MG TAB SUBLINGUAL PRN
[2025-02-11] MEDS: SODIUM CHLORIDE 0.9% 1,000 ML in EMPTY BAG 1 BAG IV SCH ×2 (08:06→12:11)
[2025-02-11] MEDS: ASPIRIN 325 MG TAB PO STA (08:07)
[2025-02-11] MEDS: IV FLUID CONTINUATION 1,000 ML IV ONE (08:13)
[2025-02-11] MEDS: fentaNYL (PF) 50 MCG/1 ML VIAL IVP ONE (09:25)
[2025-02-11] MEDS: LIDOCAINE 1% INJ 10MG/ML (20 ML MDV) SQ ONE (09:31)
[2025-02-11] MEDS: ONDANSETRON 4 MG/2 ML VIAL IVP ONE (09:32)
[2025-02-11] MEDS: VERAPAMIL SYRINGE (5 MG/10 ML) INTRAARTER ONE (09:34)
[2025-02-11] MEDS: HEPARIN SODIUM 1,000 UN/ML (10ML VL) IV ONE (09:39)
[2025-02-11] MEDS: CLOPIDOGREL 75 MG TAB PO ONE (09:48)
[2025-02-11] MEDS: NITROGLYCERIN 1000MCG/10ML SYRINGE INTRACORON ONE (09:59)
[2025-02-11] MEDS: IOPAMIDOL-370 100ML BTL INJ ONE ×2 (10:00→10:35)
[2025-02-11] MEDS ORDERED: ATROPINE SULFATE 0.1 MG/ML 10ML SYRINGE IV PRN (10:53)
[2025-02-11] MEDS ORDERED: ZOLPIDEM 5 MG TAB PO PRN (10:53)
[2025-02-11] MEDS ORDERED: RX INFO: IV CONTRAST WAS GIVEN 1 EACH MISC MISCELLANE PRN (10:53)
[2025-02-11] MEDS ORDERED: NITROGLYCERIN SL TABS 0.4 MG TAB SUBLINGUAL PRN (10:53)
[2025-02-11] MEDS ORDERED: MAG HYDROX/AL HYDROX/SIMETH 30 ML CUP PO PRN (10:53)
--- NOTE | 2025-02-11 11:02 | P.CARDCATH ---
Date of Procedure: 02/11/25 Description of Procedure: Cardiac Catheterization: The patient is a 64-year-old female with known history of hypertension hyperlipidemia who has been complaining of chest discomfort, underwent an MPI that showed apical ischemia. Recommendations were made regarding cardiac catheterization, the risks and the complications were discussed with the patient who is in full understanding and agreement. Procedure Description: Patient was brought to label machine operator in fasting semi-sedated state after receiving Fentanyl and Benadryl achieiving moderate conscious sedated state. Using Xylocaine Anesthesia and modified Seldinger technique, a 6-Vincentian sheath was introduced in the right radial artery . Subsequently, selective coronary angiography was performed using a 5-Vincentian 3.5 bend Michael catheter. Multiple views of the coronary artery including hemiaxial views were obtained. The right Michael catheter was used to cross the aortic valve and LVEDP was calculated. PCI: After removing the catheters a 6 Vincentian CLS 3.5 guiding catheter was introduced into the system and after cannulating the left main 0.014 BMW J-wire was used to cross the lesion and positioned distally. Subsequently a 2.25 x 12 mm trek balloon was advanced and 2 inflation at 8 kenia was done. After removing the balloon a [employer] eye IVUS catheter was introduced and images were obtained that revealed mildly to moderately calcified lesion with a distal lumen measuring 2.75-3.0 and proximally 3.5 to 4.0 mm. After removing the catheter a 2.75 x 23 mm Xience Skypoint stent was advanced and deployed at 16 kenia. Repeat images revealed a plaque distal to the stent and at that time a 2.5 x 15 mm Xience susan point stent was deployed distal to the first 1 at 14 kenia. Repeat IVUS imaging was performed and subsequently a 2.75 x 15 mm NC trek balloon was advanced and 2 inflations in the distal stent at 12 kenia were done and after reuben ving the balloon a 3.5 x 15 mm NC trek balloon was advanced and 1 inflation in the proximal stent was done at 10 kenia. After the last inflation the wire was removed, images were obtained and revealed stable successful stenting. Following that, catheter and sheath were removed. Hemostasis was obtained with deployment of vascular band . There was no immediate complication. Patient was returned to room in stable condition. Of note, the patient received a total of 8000 units of intravenous heparin as well as intra-arterial verapamil. Her ACT was followed. She received an oral loading dose of clopidogrel. She had mild EKG changes and chest discomfort that resolved at the end of the procedure. Findings: Fluoroscopy: Calcifications of all the coronary arteries was noted. Left main: This is a short size vessel, bifurcating into LAD and left circumflex, left main has no obstructive disease LAD: This is a large size vessel, reaching to the apex with a wraparound apex segment giving rise to a diagonal branch proximally that is moderate in size and has a 60 to 70% stenosis proximally. The proximal LAD has a 30% plaque. The mid LAD has 99% stenosis with slow flow distally. Left circumflex: This is a nondominant vessel, giving rise to 2 obtuse marginal branch, the first 1 is small in caliber. The second 1 is large in caliber and has a inferior branching segment that is subtotally occluded with slow retrograde and antegrade filling. The left circumflex has mild diffuse intimal disease. RCA: This is a large dominant vessel, bifurcating into PDA and PLV. The mid right coronary artery has 30 to 40% plaque with no high-grade stenosis. There was collaterals from the distal RCA toward the apical LAD. Left Ventriculogram: Not performed Hemodynamics: There was no gradient across aortic valve, LVEDP was 8-10 mmHg Conclusion: 1. Calcified coronary arteries 2. Severe stenosis in the mid LAD with slow flow distally 3. Chronically occluded inferior branch of the second OM 4. Mild disease in the mid RCA 5. Successful stenting of the mid LAD with reduction of stenosis from 99% to less than 5% with JOSEPH-3 flow and IVUS imaging Recommendations: The patient will continue on aspirin and clopidogrel without any interruption for 6 months with aggressive coronary risks modification, attempting to maintain LDL below 70 mg/dL. Depending on her symptoms the decision will be made regarding the need to revascularize the obtuse marginal branch. The findings and the recommendations were discussed with the patient and the family and they were in full understanding and agreement. Duration of sedation is 66 minutes.
[2025-02-11 11:04] VITALS: RESP 16
[2025-02-11] MEDS: METOPROLOL SUCCINATE (ER) 25 MG TAB.ER.24H PO SCH (16:31)
[2025-02-11] MEDS: ATORVASTATIN 40 MG TAB PO SCH (21:14)
[2025-02-12 04:57] VITALS: TEMP 98.2
[2025-02-12] MEDS: LEVOTHYROXINE 112 MCG TAB PO SCH (05:53)
[2025-02-12 06:56] LABS: African American GFR (CKD) >90 (>60 ml/min/1.73 sqM); Anion Gap 9 mmol/L; Blood Urea Nitrogen 17 mg/dL (7-17); Calcium 9.3 mg/dL (8.4-10.2); Carbon Dioxide 23 mmol/L (22-30); Chloride 105 mmol/L (98-107); Glucose 118 mg/dL (74-99); Non-African American GFR(CKD) 78 (>60 ml/min/1.73 sqM); Potassium 3.5 mmol/L (3.5-5.1); Sodium 137 mmol/L (137-145)
[2025-02-12 07:55] VITALS: BP 127/71; PULSE 72
[2025-02-12] MEDS ORDERED: METOPROLOL SUCCINATE (ER) 25 MG TAB.ER.24H PO SCH (09:00)
[2025-02-12] MEDS: LOSARTAN 50 MG TAB PO SCH (09:30)
[2025-02-12] MEDS: hydroCHLOROthiazide 12.5 MG CAP PO SCH (09:30)
[2025-02-12] MEDS: CLOPIDOGREL 75 MG TAB PO SCH (09:30)
[2025-02-12] MEDS: ASPIRIN 81 MG PO SCH (09:30)
--- NOTE | 2025-02-12 10:06 | P.DS ---
Providers Attending physician: Ryland Hugo Consults: 02/11/25 10:53 Consult Physician Routine Consulting Provider: [facility] Consult Reason/Comments: Post Interventional patient Do you want consulting provider notified?: Already Contacted Primary care physician: Kamla Simms Hospital Course: This is a 64-year-old female who underwent cardiac catheterization yesterday with Dr. Hugo revealing calcified coronary arteries, severe stenosis in the mid LAD with slow flow distally, chronically occluded inferior branch of the second OM, and mild disease in the right RCA. Patient underwent stenting of the mid LAD. Patient examined this morning to bedside. She denies chest pain or pressure. She denies shortness of breath. Right radial access site with pulse present and no hematoma noted. The patient was deemed stable for discharge home today per Dr. Hugo. The patient will be discharged on dual antiplatelet therapy with aspirin and Plavix for 6 months. Continue high intensity statin with LDL goal less than 70. Please see EMR for further hospital course details Discharge diagnosis Coronary artery disease, status post stenting of the mid LAD Nurse practitioner note has been reviewed by physician. Signing provider agrees with the documented findings, assessment, and plan of care documented by WEB OPERATIONS MANAGER as a scribe. Plan - Discharge Summary Discharge Rx Participant: No New Discharge Prescriptions: New Clopidogrel [Plavix] 75 mg PO DAILY #90 tab Nitroglycerin Sl Tabs [Nitrostat] 0.4 mg SUBLINGUAL Q5M PRN #25 tab PRN Reason: Chest Pain Continue Losartan/Hydrochlorothiazide [Losartan-Hctz 100-12.5 mg Tab] 1 tab PO DAILY Aspirin [Adult Low Dose Aspirin EC] 81 mg PO DAILY Atorvastatin Calcium [Lipitor] 40 mg PO HS@2330 Metoprolol Succinate (ER) [Toprol XL] 25 mg PO DAILY No Action Levothyroxine Sodium 112 mcg PO DAILY Ceramides 1,3,6-II [Cerave Moisturizing] 1 applic TOPICAL DAILY Cholecalciferol [Vitamin D3 (125 Mcg = 5000 Iu)] 125 mcg PO DAILY Discharge Medication List Levothyroxine Sodium 112 mcg PO DAILY 04/11/19 [History] Atorvastatin Calcium [Lipitor] 40 mg PO HS@2330 08/10/21 [History] Losartan/Hydrochlorothiazide [Losartan-Hctz 100-12.5 mg Tab] 1 tab PO DAILY 02/11/24 [History] Aspirin [Adult Low Dose Aspirin EC] 81 mg PO DAILY 02/09/25 [History] Ceramides 1,3,6-II [Cerave Moisturizing] 1 applic TOPICAL DAILY 02/09/25 [History] Cholecalciferol [Vitamin D3 (125 Mcg = 5000 Iu)] 125 mcg PO DAILY 02/09/25 [History] Metoprolol Succinate (ER) [Toprol XL] 25 mg PO DAILY 02/09/25 [History] Clopidogrel [Plavix] 75 mg PO DAILY #90 tab 02/12/25 [Rx] Nitroglycerin Sl Tabs [Nitrostat] 0.4 mg SUBLINGUAL Q5M PRN #25 tab 02/12/25 [Rx] Follow up Appointment(s)/Referral(s): Ryland Hugo MD [STAFF PHYSICIAN] - 02/25/25 4:15 pm (FOLLOW UP APPOINTMENT MADE. )
== END 2025-02-12 10:48 | disposition home or self-care (01) ==
LOC: CATHCVL 07:13 → 6NMEDSUR 10:35 → CATHCVL 02-12 10:48
PROVIDERS: ATTEND Internal Medicine Interventional Cardiology
DX: I25.10 Atherosclerotic heart disease of native coronary artery without angina pectoris (principal); I25.82 Chronic total occlusion of coronary artery; I10 Essential (primary) hypertension; E78.5 Hyperlipidemia, unspecified; Z79.02 Long term (current) use of antithrombotics/antiplatelets; Z79.82 Long term (current) use of aspirin; Z79.899 Other long term (current) drug therapy
CPT/HCPCS: 92978; 93458; 80048; 99152; 99153; C9600; C1769 ×3; C1887 ×2; C1894; C1725 ×3; C1753; C1874 ×2; J2405; J2003; J1644; Q9967; J3010; J2305